=== PATIENT | female | born 1985 | race Caucasian/White ===

== ENCOUNTER 2020-07-03 16:41 | Outpatient (RCR) | payer OTHER, SELFPAY ==
[2016-08-24 07:06] VITALS: BMI 22.2
== END 2020-08-07 23:59 ==
LOC: IMMUN 16:41
PROVIDERS: PCP Family Medicine; Referring Provider Family Medicine; Visit Provider Family Medicine
DX: Z23 Encounter for immunization (principal)
CPT/HCPCS: 0001A; 91300

== ENCOUNTER 2021-01-18 10:31 | Emergency (ER) | payer OTHER, SELFPAY ==
[2021-01-18 10:32] VITALS: BP 132/90; PULSE 97; RESP 16; TEMP 36; O2SAT 100; BMI 18.1
--- NOTE | 2021-01-18 11:00 | RAD_ITS ---
STUDY: X-RAY - LUMBAR SPINE REASON FOR EXAM: Female, 35 years old. back injury TECHNIQUE: 2 view(s) of the lumbar spine were obtained. COMPARISON: None FINDINGS: Normal lumbar lordosis. There is minimal multilevel endplate spondylosis of the lumbar vertebrae. Normal disc space heights. The soft tissue structures are unremarkable. RAD/Lumbar Spine 2 or 3 Views IMPRESSION: No demonstrated fractures Electronically Signed: Can Nguyễn MD at 11:40 EST Tel , Service support ,
--- NOTE | 2021-01-18 11:01 | EDS_ITS ---
HPI History of Present Illness Chief Complaint: Back Detail of Chief Complaint: Back pain that started yesterday Informant: patient Onset/Context/Timing Maximum Severity: Severe Narrative Narrative: Patient presents to the emergency department complaint of back pain that started yesterday. Patient states that she was bowling and felt sudden onset of pain in her low back and had a hard time straightening back out. Patient has not had back issues like this before. She complains of pain that starts in her low back and radiates into both buttocks to about mid thigh. She complains of some numbness to the area. Patient states that sometimes when she tries to walk she has a hard time and feels like her left side wants to give out. She denies loss of bowel or bladder. She denies saddle anesthesia. Prior similar symptoms: No PFSH PFSH Medical History no medical history Home Medications Prenatabs FA 1 tab PO DAILY 02/28/13 [History Last Taken 08/23/16 22:00 1 TAB] Ibuprofen [Motrin] 800 mg PO TID PRN PRN #30 tab 08/25/16 [Rx Last Taken Unknown] diazepam [Valium] 2 mg PO TID PRN #14 tab 01/18/21 [Rx Last Taken Unknown] hydrocodone-acetaminophen 1 tab PO Q4H PRN PRN 3 Days #16 tablet 01/18/21 [Rx Last Taken Unknown] methylprednisolone [Medrol (Guido)] 4 mg PO DAILY #21 tab 01/18/21 [Rx Last Taken Unknown] Allergy/AdvReac Type Severity Reaction Status Date / Time Penicillins AdvReac Unknown Verified 01/18/21 11:10 Surgical History no surgical history Social History Smoking Status: Never smoker [facility] ED Constitutional Constitutional ED: Reports systems reviewed and no addt'l complaints, except as documented; Denies body ache(s), change in weight or chills Eyes Eyes: Denies acute decrease in peripheral vision, change in vision, double vision or loss of vision ENT ENT ED: Reports none; Denies ear pain, lip swelling, loss taste/smell, neck pain, otalgia or sore throat Cardiovascular Cardiovascular: Reports none; Denies abdominal pain, chest pain with activity, leg edema, lightheadedness, palpitations, rapid heart rate or syncope Respiratory/Chest Respiratory/Chest: Reports none; Denies change in mental status, dry cough, dyspnea, hemoptysis, shortness of breath at rest or shortness of breath with exertion Gastrointestinal Gastrointestinal: Reports none; Denies abdominal pain, change in stool character, diarrhea, hematemesis, hematochezia, melena, rectal bleeding or vomiting Genitourinary Genitourinary ED: Reports none; Denies abdominal discomfort, anuria, dysuria, genital pain or polyuria Musculoskeletal Musculoskeletal: Reports none and back pain; Denies arthralgias, difficulty walking, extremity pain, muscle weakness or myalgias Integumentary Reports none; Denies abscess or rash Neurologic Neurologic: Reports none; Denies abnormal gait, confusion, focal weakness, frequent falls, headache(s), loss of vision, numbness, paresthesias, radicular pain, vertigo or weakness Psychiatric Psychiatric: Reports systems reviewed and no addt'l complaints, except as documented and none; Denies behavioral changes, confusion, difficulty concentrating, hallucinations, suicidal ideation, tactile hallucinations or visual hallucinations Endocrine Endocrinology: Denies none, cold intolerance, excessive sweating, fatigue or heat intolerance Hematologic/Lymphatic Hematologic/Lymphatic: Reports none; Denies anemia, easy bleeding or easy bruising Allergic/Immunologic Allergic/Immunologic ED: Denies as per HPI, none, lip swelling, mouth swelling, throat swelling, tongue swelling or hives EXAM Physical Exam Const Vital Signs: 01/18/21 10:32 Temperature 96.8 F L Temperature Source Temporal Pulse Rate 97 Respiratory Rate 16 Blood Pressure 132/90 H Blood Pressure Mean 104 Pulse Ox 100 Oxygen Delivery Method Room Air Positive well nourished and well developed General Appearance ED: well developed and NAD HEENT Reports TM's clear and moist mucous membranes normocephalic and atraumatic; Negative for trauma or tenderness Tympanic Membrane ED: Yes TM's clear Eyes PERRL and EOMs intact bilaterally General Eye ED: Negative for pale conjunctiva or scleral icterus Neck no lymphadenopathy, supple and no JVD General: Negative for tenderness Chest Wall inspection of chest normal and palpation of chest normal Chest: Negative for tenderness Resp normal respiratory effort and clear to auscultation bilaterally Effort and Inspection: Negative for respiratory distress or pain with movement Auscultation: Negative for rhonchi, wheezes or diminished lung sounds Cardio regular rate, regular rhythm, S1 normal heart sound, S2 normal heart sound and no murmurs Peripheral Pulses: pulses 2+ throughout GI normal to inspection, nondistended, normoactive bowel sounds, soft to palpation, non-tender, non-distended and no masses Back/Spine no CVA tenderness Back/Spine Narrative: Patient has tenderness diffusely over lumbar spine and left lumbar paraspinal musculature. Patient has pain with straight leg raising. Deep tendon reflexes are plus 2 out of 4 bilaterally at the patella Achilles. Patient has normal L5 extension bilaterally. Normal sensation to light touch. Patient is painful with rolling in bed. Extremity normal to inspection General Extremety ED: Negative for edema General Extremity: Negative for edema Neuro oriented x3, CN's II-XII intact bilaterally, no sensory deficits noted and gait normal Sensorium / Orientation: awake, alert, oriented to person, oriented to place and oriented to time Motor Exam: strength 5/5 throughout and strength abnormal Psych mental status grossly normal Skin no rashes or lesions noted and no wounds MDM MDM MDM Narrative Medical decision making narrative: Patient was medicated with Dilaudid, Toradol, and Valium. Patient started have good pain relief with that. At this point x- rays were unremarkable of her back. Neurologic exam is unremarkable and no concerning symptoms of cauda equina. She had negative straight leg raises bilaterally on repeat exam. No evidence of weakness on exam. Patient will be referred to her primary care physician for follow-up and if symptoms worsen she is advised to return to the emergency department and was instructed on signs and symptoms of cauda equina. Patient will be given a prescription for Esmond,, Medrol Dosepak, and Valium. Lab Data Attestation: I reviewed the patient's lab results. Radiography Diagnostic Testing: Clinical Impression(s) from Imaging Studies Lumbar Spine X-Ray 01/18/21 11:00 IMPRESSION: No demonstrated fractures Electronically Signed: Can Nguyễn MD at 11:40 EST Tel , Service support , Three-view x-rays of lumbar spine obtained interpreted by myself as no acute fractures or dislocations. Radiology in agreement. Discharge Plan Triage Chief Complaint: Back ED Provider: Antonia Hernandez Dx/Rx/DC Orders Clinical Impression: Back pain, Acute lumbar myofascial strain Instructions: ED Back Sprain/Strain, ED Sciatica Prescriptions: New hydrocodone-acetaminophen [hydrocodone-acetaminophen] 1 TABLET tablet 1 tab PO Q4H PRN PRN (Reason: Pain) 3 Days Qty: 16 RF: 0 diazepam [Valium] 2 mg tablet 2 mg PO TID PRN (Reason: spasms) Qty: 14 RF: 0 methylprednisolone [Medrol (Guido)] 4 mg tablets,dose pack 4 mg PO DAILY Qty: 21 RF: 0 No Action Prenatabs FA 1 TABLET tablet 1 tab PO DAILY RF: 0 Ibuprofen [Motrin] 800 MG tablet 800 mg PO TID PRN PRN (Reason: pain or cramping) Qty: 30 RF: 1 Primary Care Provider: Vj Alvarez Referrals: Vj Alvarez MD [Primary Care Provider] - 3-5 Days Disposition Disposition: Home, Self Care
[2021-01-18] MEDS: diazePAM 2 MG Tablet 4 MG PO (11:13)
[2021-01-18] MEDS: Ketorolac 60 MG/2 ML Vial IM (11:14)
[2021-01-18] MEDS: HYDROmorphone 1 MG/ML Syringe IM (11:14)
[2021-01-18 12:37] VITALS: BP 132/62; PULSE 72; RESP 16; TEMP 36.6; O2SAT 98
== END 2021-01-18 12:42 | disposition home or self-care (01) ==
PROVIDERS: Emergency Provider Emergency Medicine; PCP Family Medicine
DX: S39.012A Strain of muscle, fascia and tendon of lower back, initial encounter (principal); X58.XXXA Exposure to other specified factors, initial encounter; Y93.54 Activity, bowling
CPT/HCPCS: 72100; 96372; 99283

== ENCOUNTER → 2021-06-02 | Outpatient (CLI) | payer OTHER, SELFPAY ==
[2021-06-02 12:51] LABS: Hematocrit 39.6 % (37-47); Hemoglobin 13.6 g/dL (12.0-15.0); Mean Corp Hgb Conc 34.3 g/dL (32-36); Mean Corpuscular Hgb 32.4 pg (27.0-32.0); Mean Corpuscular Volume 94.3 fL (81-99); Platelet Count 245 K/mm3 (150-450); RBC Distribution Width CV 12.1 % (11.6-14.6); RBC Distribution Width SD 41.8 fl (35.1-43.9); White Blood Count 8.1 K/mm3 (4.4-11.0)
[2021-06-02 14:07] LABS: Estradiol 179.3 pg/mL; Follicle Stimulating Hormone 3.8 mIU/mL; Luteinizing Hormone 14.8 mIU/mL; Thyroid Stim Hormone (TSH) 1.06 uIU/mL (0.358-3.74)
[2021-06-05 18:12] LABS: HPV APTIMA, High Risk Negative (Negative)
== END | disposition home or self-care (01) ==
LOC: WOBLAB 10:39
PROVIDERS: PCP Family Medicine; Visit Provider Obstetrics & Gynecology
DX: N93.9 Abnormal uterine and vaginal bleeding, unspecified (principal); Z12.4 Encounter for screening for malignant neoplasm of cervix
CPT/HCPCS: 36415; 82670; 83001; 83002; 84439; 84443; 85027; 87624; 88175; G0145

== ENCOUNTER 2022-01-11 11:51 | Day surgery (SDC) | payer OTHER, SELFPAY ==
[2022-01-11] VITALS (15 sets, daily range): BP systolic 95–118; BP diastolic 63–89; PULSE 60–86; RESP 14–108; TEMP 36.2–36.9; O2SAT 96–100; BMI 19.1
--- NOTE | 2022-01-11 | EMB_PTH ---
PATIENT: MAZIN CARDENAS LOC: [facility] [place] U#:[id number] AGE/SX: 36/F ROOM: RE01/11/[address]: Dr. Cristobal Davey MD : 1985 BED: DIS: 01/11/2022 SPEC #: [id number] RECD: 01/11/22 16:04 STATUS: MALIK ARACELY #: [id number] LUIGI: 01/11/22 00:[address]: Cristobal Davey DEPT: SURGICAL PATHOLOGY RECD BY: Chance Sinha ENTERED: 01/12/22 09:13 SP TYPE: ENDOM BX/C JENNIFER DR: Dr. Vj Alvarez MD Tissues: Endometrium, NOS Procedures: Surgery Specimen Level IV HEADER OPERATION: Hysteroscopy, D & C Scarlett PRE-OP DIAGNOSIS: Abnormal uterine bleeding TISSUE SUBMITTED: Endometrial curettings MICROSCOPIC DIAGNOSIS Endometrium, biopsy: Secretory endometrium with early stromal and glandular breakdown. AM:arianna 01/13/2022 MICROSCOPIC DESCRIPTION Slides are reviewed. GROSS DESCRIPTION Received in fixative is one container labeled with the patient's name and designated endometrial curettings. The specimen consists of multiple fragments of hemorrhagic soft tissue that in aggregate measure 3 x 2.5 x 0.3 cm. The specimen is totally submitted in one cassette. / SJ:rg 01/12/2022 TC:5 CPT: 93688
[2022-01-11 12:32] LABS: Internal QC Validated? YES +Cl - CLEAR BKGD; Pregnancy, Urine Negative Negative
[2022-01-11] MEDS: Lactated Ringers 1,000 ML 15 ML IV (12:34)
--- NOTE | 2022-01-11 13:03 | PCM.HP.BLA ---
History and Physical Date of Admission: 01/11/22 Chief complaint: Abnormal uterine bleeding History of present illness: 36-year-old arrives with abnormal uterine bleeding scheduled for hysteroscopy, dilation curettage, endometrial ablation via Scarlett device. No medical changes since last seen. All questions answered and consent was signed. Obstetric history: G2, P2 history of 2 vaginal deliveries Past medical history: None Medications: None Allergies: Penicillin Surgical history: None Social history: Denies smoking, place, drug use Family history: Denies history of DVT or PE Review of systems: Besides above pertinent positives a full review of systems was performed and found to be negative Physical exam: Vitals: Blood pressure 118/73 pulse 85 respiratory rate 18 temperature 97.2 ?F SPO2 100% on room air General: Normal-appearing no acute distress HEENT: Normocephalic/atraumatic no cervical lymphadenopathy Cardiac/respiratory: No use of accessory muscles, nonlabored breathing Abdomen: Soft, nontender, nondistended Extremities: No peripheral edema normal peripheral pulses Psych: Normal affect normal demeanor nonpressured speech Labs: Urine test negative Assessment plan: 36-year-old arrives with abnormal uterine bleeding for hysteroscopy, dilation and curettage, endometrial ablation via Scarlett. Educated patient on the risk benefits alternatives of the procedure. Patient states understanding and wishes to proceed. All questions were answered and consent was signed
--- NOTE | 2022-01-11 14:46 | DCINST_ITS ---
Discharge Instructions Diet Discharge Diet: No restrictions Activity Discharge Activity: Return to Normal Activity, May Drive and May Shower May resume sexual activity in: 4-6 weeks Weight Bearing Status: Weight bearing as tolerated Dressing / Incision Call your doctor if your incision/area has: Continuous Slow Oozing and Foul Smelling Discharge Call your doctor if you observe: Fever of 101 or Higher, Shortness of breath and Chest pain Follow Up Care Please Follow Up With: Cristobal Davey MD When: 2 weeks postoperatively Test Results: Test results from this visit will be discussed in further detail at your follow- up appointment, if applicable. Discharge Plan Admission Attending Provider: Cristobal Davey Primary Care Provider: Vj Alvarez Discharge Orders/Prescriptions Prescriptions: No Action multivitamin Capsule 1 cap PO DAILY Referrals / Follow Up: Vj Alvarez MD [Primary Care Provider] - Disposition Disposition (needs filled in before D/C Order can be placed): Home, Self Care
--- NOTE | 2022-01-11 14:47 | PCM.OPRPT ---
Report of Operation Date of Procedure: 01/11/22 Pre-Operative Diagnosis: Abnormal uterine bleeding Post-Operative Diagnosis: Abnormal uterine bleeding Surgery/Procedure Performed:: Hysteroscopy, dilation and curettage, endometrial ablation via Scarlett Description of Surgical Findings:: Surgeon: Cristobal Davey MD Anesthesia: MAC EBL: Minimal Urine output: 50 cc none IV fluids: 1000 cc none complications: None Specimen: Endometrial curettings Findings: Preprocedure hysteroscopy revealed no pathology. Endometrial ablation for 120 seconds cavity length 5.5 cm. Post procedure hysteroscopy with status post ablation otherwise no new pathology. Consent: Patient with abnormal uterine bleeding elects for hysteroscopy, dilation curettage, endometrial ablation via Scarlett. Patient understands the risk of the procedure include but are not limited to visceral or vascular injury, prolonged hospitalization, blood loss need for transfusion, reoperation. Patient state understanding and wished to proceed. All questions were answered and consent was signed. Procedure: Patient brought back to the OR where MAC anesthesia was found to be adequate. Patient was prepared and draped in a dorsolithotomy position with yellowfin stirrups. A weighted speculum was placed in the posterior aspect of vagina and cervical dilators were used to dilate the cervix. Hysteroscope was inserted and above findings were noted. Sharp endometrial curettage was performed in all quadrants. Sent to pathology. Scarlett endometrial ablation device was opened, cavity length was found to be 5.5 cm. Endometrial ablation device was inserted under direct visualization. Cavity safety tests were passed. Ablation was performed for 120 seconds. Ablation device removed under direct visualization. Post procedure hysteroscopy was performed and above findings were noted. Good hemostasis was noted. All counts were correct x2. Patient tolerated procedure well and was brought to recovery in stable condition.
[2022-01-11] MEDS: Ketorolac 30 MG/ML Syringe IV (15:01)
[2022-01-11] MEDS: Acetaminophen 500 MG Tablet 1000 MG PO (17:02)
[2022-01-11] MEDS: oxyCODONE 5 MG Tablet PO (17:11)
== END 2022-01-11 19:00 | disposition home or self-care (01) ==
LOC: SDC 11:53 → AC 12:19
PROVIDERS: Anesthesiology; PCP Family Medicine; Referring Provider Obstetrics & Gynecology; Visit Provider Obstetrics & Gynecology
PROC: 0U5B8ZZ Destruction of Endometrium, Via Natural or Artificial Opening Endoscopic (ICD-10-PCS; CPT 58558; principal; 2022-01-11 13:15)
DX: N93.9 Abnormal uterine and vaginal bleeding, unspecified (principal)
CPT/HCPCS: 58563; 00952; 81025; 88305; J7120; J2405

== ENCOUNTER 2024-12-05 06:33 | Day surgery (SDC) | payer BC, SELFPAY ==
[2024-12-05] VITALS (8 sets, daily range): BP systolic 90–103; BP diastolic 60–81; PULSE 73–93; RESP 16; TEMP 36.3–36.8; O2SAT 100; BMI 18.3
--- OUTSIDE RECORDS SUMMARY | 2024-12-05 06:36 | XMS RPT_ITS | CCD ---
Author Organization [facility] Care Team Providers Care Director Corporate Security Name Role Phone Nisha Alvarez MD Primary Care Provider [phone] NISHA ALVAREZ Primary Care Unavailable TALKARANGLE Attending Unavailable Antonio JASSO, Dr. Zabala Primary Care Physician Dr. Nisha Alvarez MD Referring Provider Mica Theodore Attending Physician [phone] Care Physician, No Primary Primary Care Unava ilable Care Physician, No Primary Referring Unava ilable Friend, Rodney Attending Unavailable Mica Daly Attending Unavailable Nisha Alvarez Primary Care Unavailable Nisha Alvarez Referring Unavailable Nisha Alvarez Primary Care Unavailable Nisha Alvarez Referring Unavailable Franco Muniz Attending Unavailable Allergies Allergy Classification Reported Allergen(s) Allergy Type Date of Onset Reaction(s) Facility (2 sources) Penicillins Propensity to adverse reactions 2 Unknown [facility] (1 source) Penicillins Drug allergy (disorder) 5 [facility] Repository Medications Current Medications Medication Drug Class(es) Dates Sig (Normalized) Sig (Original) acetaminophen 325 mg / HYDROcodone bitartrate 5 mg oral tablet (1 source) Opioid Agonist Start: 1 take 1 tablet by mouth every four hours as needed Hydrocodone-Acetamino phen Active 1 TABLET PO EVERY 4 HOURS NEEDED 16 3 January 18, 2021 1:03pm cefdinir 300 mg oral capsule (1 source) Cephalosporin Antibacterial Start: 5 End: 5 take 1 capsule by mouth twice daily cefdinir (OMNICEF) 300 mg capsule Indications: URI, acute , Acute otitis media, left Take 1 capsule by mouth two times a day for 10 days. 20 capsule 09/09/2024 09/19/2024 Active diazePAM 2 mg oral tablet (1 source) Benzodiazepine Start: 1 take 1 tablet by mouth three times daily Diazepam (Valium) 2 mg tablet Active 2 MG PO THREE TIMES A DAY January 18, 2021 1:04pm ibuprofen 800 mg oral tablet (1 source) Nonsteroidal Anti-inflammatory Drug Start: 7 take 1 tablet by mouth three times daily as needed Ibuprofen (Motrin) 800 MG tablet Active 800 MG PO 3 TIMES DAILY NEEDED August 25, 2016 7:28am methylPREDNISolone (2 sources) Corticosteroid Start: 5 End: 5 methylPREDNISolone (MEDROL, KWADWO,) 4 mg Dose-Pack Indications: URI, acute , Acute otitis media, left Take as instructed per package. 21 tablet 09/09/2024 09/15/2024 Active Start: 01-18-2021 take 1 tablet by cristiano once daily Methylprednisolone (Medrol (Kwadwo)) 4 mg tablets,dose pack Active 4 MG PO DAILY January 18, 2021 1:04pm Multivitamin Capsule (1 source) Start: 01-06-2022 Multivitamin Capsule Active 1 NMA PO DAILY January 06, 2022 1:00am Complies with drug therapy Multivitamin preparation (1 source) Start: 01-06-2022 take 1 capsule by mouth once daily Multivitamin Active 1 CAP PO DAILY January 06, 2022 12:00am predniSONE 20 mg oral tablet (1 source) Start: 12-02-2021 End: 12-07-2021 take 2 tablets by mouth once daily predniSONE (DELTASONE) 20 mg tablet Take 2 tablets by mouth once daily for 5 days. 10 tablet 0 12/02/2021 12/07/2021 Active Comment on above: Take 2 tablets by mo [facility] once daily for 5 days. Vit,[id number] c (Prenatabs Fa) 1 TABLET tablet (1 source) Start: 02-28-2013 take 1 tablet by mouth once daily Vit,[id number] ic (Prenatabs Fa) 1 TABLET tablet Active 1 TABLET PO DAILY February 28, 2013 9:14pm smooth move tea (1 source) Start: 11-15-2024 Sod Sulf-Pot Chloride-Mag Sulf (1 source) Start: 11-15-2024 take 1.479 tablets by mouth once Sod Sulf-Pot Chloride-Mag Sulf (Sutab) 1.479-0.188- 0.225 gram tablet Active 0 PO per package directions 24 November 15, 2024 12:00am PO PER PKG DIR Complies with drug therapy Problems Active Problems Problem Classification Problem Date Documented Da te Episodic/Chronic Gastrointestinal hemorrhage (3 sources) Hematochezia; Translations: [Melena] Onset: 11-15-2024 11-15-2024 Episodic Other gastrointestinal disorders (2 sources) Constipation; Translations: [Constipation, unspecified] 11-15-2024 Episodic Other gastrointestinal disorders (1 source) Constipation, unspecified; Translations: [Constipation, unspecified] Onset: 11-15-2024 Episodic Otitis media and related conditions (2 sources) Acute left otitis media; Translations: [Otitis media, unspecified, left ear] Onset: 09-09-2024 09-09-2024 Episodic Spondylosis; intervertebral disc disorders; other back problems (3 sources) Backache; Translations: [Dorsalgia, unspecified] 01-26-2021 Episodic Sprains and strains (3 sources) Lower back injury; Translations: [Strain of muscle, fascia and tendon of lower back, initial encounter] 01-26-2021 Episodic Past or Other Problems Problem Classification Problem Date Documented Da te Episodic/Chronic Other upper respiratory infections (5 sources) Sore throat symptom; Translations: [Acute pharyngitis, unspecified] Onset: 04-05-2024 Episodic Results Test Name Value Interpretation Reference Range Facility Gastroenterology Visit Repor ton 11-15-2024 Gastroenterology Visit Report [facility] [address] [place] [address] OFFICE VISIT Date of Service: 11/15/24 MR#: [id number] Acct: [id number] Name: FAIZA CARDENAS Rep #: [id number] : 1985 Provider: CADY Chavez Age/Sex: 39/F [place] [facility] [place] Status: Signed Intake Vital Signs 04/05/24 10:36 Height 5 ft 3 in Weight: 105 lb 4 oz BMI 18.6 BP 102/68 Position Sitting Pulse 90 Temp 98.3 F Temp Source Oral Pulse Oximetry (%) 98 Oxygen Delivery Method room air Intake Visit Reasons: Digestion Concerns Chief Complaint: Consitpation Allergies Penicillins Adverse Reaction (Verified 04/05/24 10:37) Unknown Medications ???Medication ???Instructions ???Recorded ???Confirmed ???Type multivitamin 1 cap PO DAILY 01/06/22 11/15/24 H istory smooth move tea PO 11/15/24 History sodium sul 1.479 gram-potas ch See Rx Instructions PO PER PKG DIR 11/15/24 11/15/24 Rx 0.188 gram-magnes sul 0.225 gram #24 tabs tablet (Sutab) PFSH Medical History UTI (urinary tract infection) Back problem Blood infection Alcohol use Anemia Non-smoker Surgical History H/O uterine ablation History of placement of ear tubes Hx of myringotomy Hx of tonsillectomy Family History Father Alcoholism Hypertension Grandmother Anesthesia complication Breast cancer CVA (cerebral vascular accident) Grandfather Myocardial infarction Heart disease Hypertension Melanoma Social History Smoking Status: Never smoker alcohol intake: current substance use type: does not use what type of physical activity do you participate in: walking and yoga frequency: 3-4 times per week HPI HPI Chief Complaint: Consitpation Details: FAIZA CARDENAS, is a 39 F who presents to the office today for establishment. Pt having constipation x1 year. She started drinking smooth moves tea which has contains senna two times per week. She is able to have a bowel movement two times per week. SHe has tried miralax in the past without relief. She notices dark red blood and mucous in her stool. She has associated bloating and abd pain. When she does have a bowel movement it is typically soft or loose. She denies formed bowel movements. SHe has always had a degree of constipation since having children. ROS Const Constitutional: Positive for fatigue; No fever(s) or weight change ENT ENT: No difficulty swallowing Gastro GI: Positive for abdominal pain, bloating, change in bowel habits, constipation, diarrhea, heartburn and Blood in stool; No belching, change in stool character, coffee ground emesis, cramping, difficulty swallowing, feeling full early, excessive flatus, incontinent of stools, Vomiting blood/hematemesis, loose stools, Black,tarry stools, nausea/dyspepsia, pain with swallowing or other Musc Musculoskeletal: Positive for back pain; No joint pain Skin Skin: No yellowing of the eye or itchy eyes Psych Psychiatric: No anxiety, No depression and Positive for inattentiveness Endo Endocrine: Positive for fatigue; No weight change Aller/Imm Allergy/Immunologic: No itchy eyes Héctor/Lymp Hematologic/Lymphatic: Positive for easy bruising; No easy bleeding Exam Const General: cooperative and comfortable Nutritional Appearance: thin Orientation: alert HENMT Head: normal to inspection Ears: hearing grossly normal bilaterally Eyes General: appearance normal, both eyes and all related structures Neck Neck: normal visual inspection Chest Chest palpation inspection: normal inspection of the chest Resp Effort Inspection: normal respiratory effort Cardio Rate: regular rate Rhythm: regular rhythm GI Inspection: normal to inspection Auscultation: normal bowel sounds Palpation: not soft, firm, no guarding and nontender Assessment and Plan Assessment and Plan (1) Constipation: Status: Acute Plan: This is a 39-year-old female patient here today for evaluation for constipation and blood in her stool. Patient first noticed constipation after having her 2 children but it progressively worsened over the past year. She is currently taking a senna tea 2 times per week which allows her to have 2 bowel movements per week. She is also seeing maroon-colored blood and mucus in her stools. Recommended trialing Linzess 145 mcg daily and if she finds this helpful we will send in prescription. She was advised that she may experience diarrhea within the first 2 weeks of taking it but should normalize. Patient was also scheduled for colonoscopy for evaluation of her lower GI tract to rule out underlying etiology. Patient was agreeable to procee (more content not included)... Normal [facility] CNOVon 09-09-2024 CNOV Office Visit (WOUCA) FAIZA CARDENAS ([id number]) 1985 F CHT Date Time Provider Department 09/09/24 9:45 AM ANGLE CLEMENS During your visit today, we recorded the following information about you: Temperature Pulse Respiration Blood pressure 99.3 degrees 100/minute 16/minute 102/64 Weight 48.3 kg Angle Clemens MD 09/09/2024 9:53 AM Signed Otitis Media You have been diagnosed with otitis media. This is a middle ear infection. Otitis media is inflammation of the middle ear. It is most common in children 6 months to 3 years old. However, it can happen at any age. It is caused by either a bacteria or a virus and often follows a viral upper respiratory (lung) infection. Some otitis media symptoms are: Fever (temperature higher than 100.4?F / 38?C) and ear pain. There may also be a feeling of fullness in the ear or decreased hearing. If the eardrum ruptures (splits), there may also be drainage from the ear. In the [facility], otitis media is often treated with antibiotics. It is also often treated with pain medicines like acetaminophen (Tylenol?) or ibuprofen (Advil? or Motrin?) and sometimes with pain-relieving eardrops. In many other countries, otitis media is not treated with antibiotics. However, the outcome seems to be the same: The ear clears up on its own! Most cases of otitis media get better over 2-3 days with treatment. Take the antibiotic as directed and finish the whole prescription. Follow up with your doctor in 4-6 weeks. This will be to make sure the fluid in the middle ear has cleared. YOU SHOULD SEEK MEDICAL ATTENTION IMMEDIATELY, EITHER HERE OR AT THE NEAREST EMERGENCY DEPARTMENT, IF ANY OF THE FOLLOWING OCCURS: You do not get better, despite treatment. Symptoms become worse. A severe headache, stiff neck, lethargy (excessive fatigue and sleepiness) or confusion develops. Angle Clemens MD 09/09/2024 9:58 AM Signed [facility] Brenda Dozierharsha Cardenas is a 39 year old female. Patient presents with: Earache: Entered by patient Ear Pain: left ear pain, blood and can not hear x 2 days Pt here with 1 week hx of uri sx now left ear pain and clear discharge then some blood muffled hearing also mild fever also a cough with mucus no rashes no sT + post nasal drip Ear Pain Associated symptoms include chills, congestion, coughing and a fever. Review of Systems Constitutional: Positive for chills and fever. HENT: Positive for congestion, ear discharge, ear pain, hearing loss, postnasal drip, sinus pressure and sinus pain. Respiratory: Positive for cough. Negative for shortness of breath, wheezing and stridor. Objective BP 102/64 Pulse 100 Temp 37.4 ?C (99.3 ?F) Resp 16 Wt 48.3 kg (106 lb 7.7 oz) LMP 09/26/2009 SpO2 96% Physical Exam Vitals and nursing note reviewed. Constitutional: Appearance: Normal appearance. She is not ill-appearing. HENT: Right Ear: Tympanic membrane and ear canal normal. Ears: Comments: Left tm red canal ok no blood no discharge at this time Nose: Congestion and rhinorrhea present. Mouth/Throat: Mouth: Mucous membranes are moist. Pharynx: Oropharynx is clear. Cardiovascular: Rate and Rhythm: Normal rate and regular rhythm. Heart sounds: Normal heart sounds. Pulmonary: Effort: Pulmonary effort is normal. Breath sounds: Normal breath sounds. No wheezing, rhonchi or rales. Chest: Chest wall: No tenderness. Neurological: Mental Status: She is alert and oriented to person, place, and time. Psychiatric: Mood and Affect: Mood normal. Behavior: Behavior normal. {ASSESSMENT/PLAN: 1. URI, acute - ICD9: 465.9, ICD10: J06.9 (primary diagnosis) - CEFDINIR 300 MG CAPSULE - METHYLPREDNISOLONE 4 MG TABLETS IN A DOSE PACK 2. Acute otitis media, left - ICD9: 382.9, ICD10: H66.92 Return here as needed - CEFDINIR 300 MG CAPSULE - METHYLPREDNISOLONE 4 MG TABLETS IN A DOSE PACK Angle Clemens MD History and Record Review Clinical information obtained from an independent historian. History obtained from or confirmed by: spouse. Systemic symptoms present included: fever Differential Diagnoses - otitis media is more likely for the following reason(s): suggested by HANDP - pneumonia is less likely for the following reason(s): normal exam o2 sat normal, HANDP not suggestive Disposition The patient was discharged. Procedures Allergies As of Date: 09/09/2024 (No Known Allergies) Date Reviewed: 09/09/2024 Reviewed by: Adrianna Anna MA - Fully Assessed Reason for Visit: Earache [243] Cmt: Entered by patient Ear Pain [817] Cmt: left ear pain, blood and can not hear x 2 days Primary Visit Diagnosis:URI, acute [J06.9] Other Visit Diagnosis:Acute otitis media, left [H66.92] Order(s):cefdinir (OMNICEF) 300 mg capsuleTake 1 capsule by mouth two times a day for 10 days.Disp: 20 capsu (more content not included)... Normal [facility] Visit Reporton 0 04-05-2024 Urgent Care Visit Report [facility] [address], [address] [place] [address] OFFICE VISIT Date of Service: 04/05/24 MR#: [id number] Acct: [id number] Name: FAIZA CARDENAS Rep #: [id number] : 1985 Provider: CADY Oglesby Age/Sex: 38/F [place] [facility] [place] Status: Signed Intake Vital Signs 01/11/22 12:35 04/05/24 10:36 Height 5 ft 3 in 5 ft 3 in Weight: 105 lb 4 oz BMI 18.6 BP 102/68 Position Sitting Pulse 90 Temp 98.3 F Temp Source Oral Pulse Oximetry (%) 98 Oxygen Delivery Method room air Intake Visit Reasons: sore throat Accompanied by: Self Allergies Penicillins Adverse Reaction (Verified 04/05/24 10:37) Unknown Medications ???Medication ???Instructions ???Recorded ???Confirmed ???Type multivitamin 1 cap PO DAILY 01/06/22 04/05/24 H istory Nurse's Note: Patient has a ST, that started yesterday. Patient states her throat feels like its on fire. Patient states it hard to swallow. Patient lymph nodes are swollen she states and her daughter tested positive on Tuesday for strep. PFSH Medical History Alcohol use Anemia Non-smoker Surgical History (Updated 01/06/22 @ 12:27 by [place] Ramesh) Hx of myringotomy Hx of tonsillectomy Social History Smoking Status: Never smoker HPI HPI Details: FAIZA CARDENAS, is a 38 F who presents to the office today for complaint sore throat that started yesterday. Patient states it feels like her throat is on fire. She denies fever, chills, sweats. No hemoptysis, shortness of breath or difficulty breathing. No loss of taste or smell. No other associated symptoms or alleviating/aggravating factors. ROS Const Constitutional: No other (6 system ROS completed with pertinent findings in the HPI otherwise normal.) Exam Const General: cooperative and well developed HENMT Head: normal to inspection and atraumatic Ears: hearing grossly normal bilaterally Nose: nasal discharge clear Face and sinus: normal facial exam Mouth: oral mucosae normal Throat: abnormal tonsil bilaterally hypertrophy 1+ Resp Effort Inspection: normal respiratory effort and no audible wheezes Auscultation: Bilateral: Clear to Auscultation Cardio Palpation: normal PMI Rate: regular rate Rhythm: regular rhythm Neuro General: patient alert and CN's II-XI intact bilaterally Psych Appearance: grossly normal Mental Status: mental status grossly normal Results POC Aundrea Rapid Strep POC Aundrea Rapid Strep Negative Last Edit by Theresa Deluna MA on 04/05/24 10:51 Coding Level of Care Code Off vis,new,level 3 Diagnoses Acute pharyngitis J02.9 Assessment and Plan Assessment and Plan (1) Acute pharyngitis: Status: Acute Plan: Patient tested negative for strep in the office today. Encouraged to get plenty of rest, drink lots of clear liquids, and use Tylenol or Ibuprofen (unless contraindicated) for fever and comfort. Patient also educated on other symptomatic management techniques. To be seen in 7-10 days if no improvement; sooner if worsening of symptoms. Patient advised of potential red flags and when appropriate to report to the ED. Patient verbalized understanding and agreement with all the above. Orders: Orders POC Aunrdea Rapid Strep A 04/05/24 J02.9 - Acute pharyngitis, unspecified 04/06/24 0647 Date Franco Paz Signature: Date (if applicable) CC: Normal [facility] Laboratory - Chemistry and C hemistry - challengeon 01-11-2022 HCG ( test) Ql (U) Negative [facility] Work Phone: Comment on above: Very dilute urine sp ecimens, as indicated by a low specificgravity, may not contain technical support representative levels of hCG. If is still suspected, a first morning urinespecimen should be collected 48 hours later and tested. STREP A MOLECULAR (POC)on Procedural Control Valid [facility] Strep A (POCT) Negative Negative [facility] Basophil percentageon 2021 WBC (Bld) [#/Vol] 8.1 10*3/uL 4.4-11.0 [facility] Work Phone: Blood erythrocytes count (nu mber/volume)on 06-02-2021 RBC (Bld) [#/Vol] 4.20 10*6/uL 4.2-5.4 [facility] Work Phone: Blood hemoglobin measurement (mass/volume)on 06-02-2021 Hemoglobin (Bld) [Mass/Vol] 13.6 g/dL 12.0-15.0 [facility] Work Phone: Blood platelet mean volumeon 06-02-2021 Platelet mean volume (Bld) [Entitic vol] 11.0 fL 6.2-12.0 [facility] Work Phone: Cervical or vagninal specime n microscopic examination by cytology stain (reported ason 06-02-2021 Cytology report Cyto stain Doc (Cvx/Vag) Comment [facility] Work Phone: Comment on above: The Pap smear is a s creening test designed to aid in thedetection of premalignant and malignant conditions of theuterine cervix. It is not a diagnostic procedure andshould not be used as the sole means of detecting cervicalcancer. Both false-positive and false-negative reports dooccur. Detection in cervical specim en of any of human papilloma virus (HPV) 16, 18, 31, 33,on 06-02-2021 HPV 16+18+31+33+35+39+45+ 51+52+56+58+59+66+68 DNA Probe+sig amp Ql (Cvx) Negative Negative [facility] Work Phone: Comment on above: This nucleic acid am plification test detects fourteen high- risk HPV types (16,18,31,33,35,39,45,51,52,56,58,59,66,68)without differentiation.Performed at: - [facility] [id number] Director: Elsie Tobin MD, Phone: [phone] at: = - [facility] [id number] Director: Elsie Tobin MD, Phone: [phone] Determination of erythrocyte mean corpuscular volume (MCV)on 06-02-2021 MCV (RBC) [Entitic vol] 94.3 fL 81-99 [facility] Work Phone: Hematocrit Auto (Bld) [Volum e fraction]on 06-02-2021 Hematocrit (Bld) [Volume fraction] 39.6 % 37-47 [facility] Work Phone: Laboratory - Chemistry and C hemistry - challengeon 06-02-2021 Free T4 [Mass/Vol] 1.00 ng/dL 0.76-1.46 [facility] Work Phone: Laboratory - Cytologyon 05-09 Electronics Recycler Cyto stain Nom (Cvx/Vag) [ID] Comment [facility] Work Phone: Comment on above: Becky Guzman, Cyto technologist (ASCP) Laboratory - Hematology and Cell countson 06-02-2021 Erythrocyte distribution width (RBC) [Entitic vol] 41.8 fL 35.1-43.9 [facility] Work Phone: Erythrocyte distribution width (RBC) [Ratio] 12.1 % 11.6-14.6 [facility] Work Phone: MCH (RBC) [Entitic mass] 32.4 pg 27.0-32.0 [facility] Work Phone: Laboratory - Miscellaneous t estson 06-02-2021 Service comment (Unsp spec) [Interp] Comment [facility] Work Phone: Comment on above: This liquid based Th inPrep(R) pap test was screened withthe use of an image guided system. Service comment (Unsp spec) [Interp] . [facility] Work Phone: MCHC Auto (RBC) [Mass/Vol]on 06-02-2021 MCHC (RBC) [Mass/Vol] 34.3 g/dL 32-36 [facility] Work Phone: No Panel Informationon 06-02 Follicle Stimulating Hormone 3.8 mIU/mL [facility] Work Phone: Comment on above: NORMAL REFERENCE RAN GES FEMALE FOLLICULAR 2.3 - 12.6 mIU/mL MID-CYCLE PEAK 5.2 - 17.5 mIU/mL LUTEAL 1.7 - 12.9 mIU/mL POST-MENOPAUSAL ON MHT 5.9 - 72.8 mIU/mL NOT ON MHT 12.7 - 132.2 mlU/mL MALE 0.7 - 10.8 mIU/mL Luteinizing Hormone 14.8 mIU/mL [facility] Work Phone: Comment on above: NORMAL REFERENCE RAN GES FEMALE FOLLICULAR 1.9 - 26.2 mIU/mL MID-CYCLE PEAK 22.8 - 76.1 mIU/mL LUTEAL 0.6 - 16.6 mIU/mL POST-MENOPAUSAL ON MHT 1.1 - 52.4 mIU/mL NOT ON MHT 8.6 - 61.8 mIU/mL MALE 1.2 - 10.6 mIU/mL Thyroid Stimulating Hormone (TSH) 1.06 uIU/mL 0.358-3.74 [facility] Work Phone: Pathology report final diagnosis Narrative Comment [facility] Work Phone: Comment on above: NEGATIVE FOR INTRAEP ITHELIAL LESION OR MALIGNANCY. Platelets bldon 06-02-2021 Platelets (Bld) [#/Vol] 245 10*3/uL 150-450 [facility] Work Phone: Serum or plasma estradiol (E 2) measurement (mass/volume)on 06-02-2021 E2 [Mass/Vol] 179.3 pg/mL [facility] Work Phone: Comment on above: NORMAL REFERENCE RAN GES FEMALE FOLLICULAR 21.4 - 164.8 pg/mL MID-CYCLE PEAK 49.9 - 367.2 pg/mL LUTEAL 40.2 - 259.0 pg/mL POST-MENOPAUSAL ON MHT <11.0 - 462.1 pg/mL NOT ON MHT <11.0 - 58.3 pg/mL MALE <11.0 - 52.5 pg/mL NOTE:[facility] HAS CONFIRMED THE DRUG FULVETRANT (FASLODEX) MAY CAUSE FALSELY ELEVATED ESTRADIOL RESULTS WHEN USING THIS TEST METHOD. IF PATIENT IS TAKING FULVESTRANT AN ALTERNATIVE METHOD SHOULD BE USED TO DETERMINE ESTRADIOL CONCENTRATION. Vital Signs Date Time Vital Sign Value Performing Clinician Facility 09-09-2024 09:44-0400 Body temperature 99.3 [degF] Angle Clemens MD Work Phone: [facility] 09-09-2024 09:44-0400 Body weight 48.3 kg Angle Clemens MD Work Phone: [facility] 09-09-2024 09:44-0400 Diastolic blood pressure 64 mm[Hg] Angle Clemens MD Work Phone: [facility] 09-09-2024 09:44-0400 Heart rate 100 /min Angle Clemens MD Work Phone: [facility] 09-09-2024 09:44-0400 Respiratory rate 16 /min Angle Clemens MD Work Phone: [facility] 09-09-2024 09:44-0400 SaO2% (BldA) [Mass fraction] 96 % Angle Clemens MD Work Phone: [facility] 09-09-2024 09:44-0400 Systolic blood pressure 102 mm[Hg] Angle Clemens MD Work Phone: [facility] 01-11-2022 18:45-0500 Body temperature 98.3 [degF] [facility] Work Phone: 01-11-2022 18:45-0500 Diastolic blood pressure 75 mm[Hg] [facility] [place] Work Phone: 01-11-2022 18:45-0500 Heart rate 68 /min [facility] Work Phone: 01-11-2022 18:45-0500 Respiratory rate 16 /min [facility] Work Phone: 01-11-2022 18:45-0500 SaO2% (BldA) [Mass fraction] 99 % [facility] Work Phone: 01-11-2022 18:45-0500 Systolic blood pressure 102 mm[Hg] [facility] Work Phone: 01-11-2022 12:35-0500 Body height 160.02 cm [facility] Work Phone: 01-11-2022 12:35-0500 Body mass index (BMI) [Ratio] 19.1 kg/m2 [facility] Work Phone: 01-11-2022 12:35-0500 Body weight 48.98 kg [facility] Work Phone: 12-02-2021 08:47-0400 Body temperature 99.39 [degF] Wandy Jain APRN.[employer] Work Phone: [facility] 12-02-2021 08:47-0400 Body weight 48.08 kg Wandy Jain APRN.[employer] Work Phone: [facility] 12-02-2021 08:47-0400 Diastolic blood pressure 70 mm[Hg] Wandy Jain APRN.[employer] Work Phone: [facility] 12-02-2021 08:47-0400 Heart rate 116 /min Wandy Jain APRN.[employer] Work Phone: [facility] 12-02-2021 08:47-0400 Respiratory rate 20 /min Wandy Jain APRN.[employer] Work Phone: [facility] 12-02-2021 08:47-0400 SaO2% (BldA) [Mass fraction] 98 % Wandy Jain APRN.[employer] Work Phone: [facility] 12-02-2021 08:47-0400 Systolic blood pressure 118 mm[Hg] Wandy Jain APRN.[employer] Work Phone: [facility] Encounters Encounter Date Encounter Type Care Provider Facility Start: 12-05-2024 ambulatory No Primary Car e Physician Facility:[facility] Start: 11-15-2024 End: 11-15-2024 Patient encounter procedure Mica LAZAR -[facility] Work Phone: Start: 11-15-2024 End: 11-15-[address] Nisha Alvarez MD Work Phone: -[facility] Start: 09-09-2024 End: 09-09-2024 Office outpatient visit 25 minutes Angle Clemens MD Work Phone: [facility] [place] Comment on above: URI, acute (Primary Dx); Acute otitis media, left Start: 09-09-2024 End: 09-09-2024 ambulatory NISHA ALVAREZ Facility:[facility] Start: 04-05-2024 End: 04-05-2024 dawson Alvarez Facility:[facility] Start: 01-11-2022 End: 01-11-2022 Admission to same day surgery center [facility] Start: 01-11-2022 End: 01-11-2022 ambulatory [facility] Work Phone: Start: 12-02-2021 End: 12-02-2021 Patient encounter procedure Wandy Jain APRN.[employer] Work Phone: [facility] Comment on above: Sore throat (Primary Dx) Start: 06-02-2021 End: 06-02-2021 Patient encounter procedure [facility] [place] lens block gauger Off Procedures Date Procedure Procedure Detail Performing Clinician Start: 01-11-2022 Hysteroscopy with endometrial ablation Start: 12-02-2021 STREP A MOLECULAR (POC) Wandy Jain APRN.[facility] Work Phone: Plan of Treatment Date Care Activity Detail Author Start: 10-08-2024 Influenza vaccination Influenz a Vaccine (#1) [facility] Start: 01-11-2022 Patient discharge [facility] Work Phone: Start: 01-11-2022 Ambulation therapy management [facility] Work Phone: Start: 01-11-2022 Continuous pulse oximetry [facility] Work Phone: Start: 01-11-2022 Elevation of head of bed [facility] Work Phone: Start: 01-11-2022 Incentive spirometry [facility] Work Phone: Start: 01-11-2022 Introduction of urin chanel catheter [facility] Work Phone: Start: 01-11-2022 Measuring intake and output [facility] Work Phone: Start: 01-11-2022 Notification of physician [facility] Work Phone: Start: 01-11-2022 Oxygen therapy [facility] Work Phone: Start: 01-11-2022 Patient education [facility] Work Phone: Start: 01-11-2022 Taking patient vital signs [facility] Work Phone: Start: 01-11-2022 Wound care [facility] Work Phone: Start: 01-11-2022 [facility] Work Phone: Start: 12-03-2021 End: 02-02-2022 Heterophile Ab [Presence] in Serum by Latex agglutination MONOTEST, INFECTIOUS MONO Lab Routine Sore throat Expected: 12/03/2021, Expires: 02/02/2022 [facility] Work Phone: Comment on above: Expected: 12/03/2021 , Expires: 02/02/2022 Start: 10-08-2021 Influenza vaccination INFLUENZA (#1) [facility] Start: 02-07-2021 DEPRESSION ASSESSMENT DEPRESSION ASS ESSMENT [facility] Start: 09-19-2020 COVID-19 VACCINE (3 - Booster for Pfizer series) COVID-19 VACCINE (3 - Booster for Pfizer series) [facility] Start: 05-29-2017 HPV TESTING HPV TESTING [facility] Start: 09-09-2015 Urine microalbumin profile DTaP,Tdap,Td Vaccine (2 - Td or Tdap) [facility] Start: 05-29-2008 PAP TESTING PAP TESTING [facility] Start: 05-29-2008 Screening for malign ant neoplasm of cervix Cervical Cancer Screening [facility] Start: 05-29-2006 Urine microalbumin profile DTAP,TDAP,TD (1 - Tdap) [facility] Start: 05-29-2005 Anxiety Screening Anxiety Screening [facility] Start: 05-29-2005 Depression Screening Depression Scre ening [facility] Start: 05-29-2005 HEPATITIS C SCREENING HEPATITIS C [facility] Start: 05-29-2005 Hepatitis C screening Hepatitis C [facility] Start: 05-29-2005 HIV SCREENING HIV SCREENING [facility] Start: 05-29-2005 HIV screening HIV Screening [facility] Start: 03-07-2003 Hepatitis B Vaccine (2 of 3 - 3-dose series) Hepatitis B Vaccine (2 of 3 - 3-dose series) [facility] Start: 1985 HEPATITIS B (1 of 3 - 3-dose series) HEPATITIS B (1 of 3 - 3-dose series) [facility] Patient referral [facility] Work Phone: Immunizations Immunization Date Immunization Notes Care Provider Mark rodriguez 03-03-2013 Influenza virus vaccine [facility] Payers Date Payer Category Payer [facility] [id number] 2024 Self-pay [id number] 2024 Unknown [id number] 2021 Unknown MMO MMO [employer] [id number] 2021-Present [phone] [address] [place] [address] PPO [id number] 2014 Unknown [id number] Private Health Insurance [id number] Unknown [id number] Unknown [id number] Social History Date Type Detail Facility Start: 01-18-2021 End: 01-06-2022 Tobacco smoking status NHIS Unknown if ever smoked [facility] Work Phone: Start: 07-08-2020 Occasional [facility] Start: 07-08-2020 None [facility] Start: 07-08-2020 Homeless [facility] Start: 07-08-2020 Non-smoker [facility] Start: 1985 Sex Assigned At Female W [facility] Start: 12-02-2021 End: 11-15-2024 Tobacco smoking status NHIS Never smoked tobacco [facility] Work Phone: Start: 12-02-2021 Tobacco use and exposure Smokeless tobacco non-user [facility] Work Phone: Start: 12-02-2021 Alcohol intake Current non-dr supervisor [employer] of alcohol (finding) [facility] Start: 1985 Sex Assigned At Not on file [facility] Start: 11-22-2021 End: 12-02-2021 Exposure to SARS-CoV-2 (event) Not sure [facility] Start: 01-15-2020 End: 12-02-2021 History of Social function [facility] Start: 01-15-2020 End: 12-02-2021 Tobacco use panel [facility] National Score (1-100), lower number is lower risk Not on file [facility] Goals Date Patient Goal Desired Activity /State Mental Status Date Assessment Result Facility 01-11-2022 Cognitive function Voice/Name [facility] Work Phone: Clinical Notes 06-02-2021 to 11-15-2024 Angle Clemens MD - 09/09/2024 9:53 AM EDTPatient Kosta Jain APRN.CNP - 12/02/2021 8:55 AM EDT Note Date & Type Note Facility 11-15-2024 Progress note [facility] 09-09-2024 Note HNO ID: [id number] Author: ANGLE CLEMENS MD Service: ? Author Type: Physician Type: Progress Notes Filed: 09/09/2024 09:58 Note Text: [facility] Cardenas is a 39 year old female. Patient presents with: Earache: Entered by patient Ear Pain: left ear pain, blood and can not hear x 2 days Pt here with 1 week hx of uri sx now left ear pain and clear discharge then some blood muffled hearing also mild fever also a cough with mucus no rashes no sT + post nasal drip Ear Pain Associated symptoms include chills, congestion, coughing and a fever. Review of Systems Constitutional: Positive for chills and fever. HENT: Positive for congestion, ear discharge, ear pain, hearing loss, postnasal drip, sinus pressure and sinus pain. Respiratory: Positive for cough. Negative for shortness of breath, wheezing and stridor. Objective BP 102/64 Pulse 100 Temp 37.4 ?C (99.3 ?F) Resp 16 Wt 48.3 kg (106 lb 7.7 oz) LMP 09/26/2009 SpO2 96% Physical Exam Vitals and nursing note reviewed. Constitutional: Appearance: Normal appearance. She is not ill-appearing. HENT: Right Ear: Tympanic membrane and ear canal normal. Ears: Comments: Left tm red canal ok no blood no discharge at this time Nose: Congestion and rhinorrhea present. Mouth/Throat: Mouth: Mucous membranes are moist. Pharynx: Oropharynx is clear. Cardiovascular: Rate and Rhythm: Normal rate and regular rhythm. Heart sounds: Normal heart sounds. Pulmonary: Effort: Pulmonary effort is normal. Breath sounds: Normal breath sounds. No wheezing, rhonchi or rales. Chest: Chest wall: No tenderness. Neurological: Mental Status: She is alert and oriented to person, place, and time. Psychiatric: Mood and Affect: Mood normal. Behavior: Behavior normal. {ASSESSMENT/PLAN: 1. URI, acute - ICD9: 465.9, ICD10: J06.9 (primary diagnosis) - CEFDINIR 300 MG CAPSULE - METHYLPREDNISOLONE 4 MG TABLETS IN A DOSE PACK 2. Acute otitis media, left - ICD9: 382.9, ICD10: H66.92 Return here as needed - CEFDINIR 300 MG CAPSULE - METHYLPREDNISOLONE 4 MG TABLETS IN A DOSE PACK Angle Clemens MD History and Record Review Clinical information obtained from an independent historian. History obtained from or confirmed by: spouse. Systemic symptoms present included: fever Differential Diagnoses - otitis media is more likely for the following reason(s): suggested by HANDP - pneumonia is less likely for the following reason(s): normal exam o2 sat normal, HANDP not suggestive Disposition The patient was discharged. Procedures [facility] 09-09-2024 History of Present illness Narrative [facility] Cardenas is a 39 year old female. Patient presents with: Earache: Entered by patient Ear Pain: left ear pain, blood and can not hear x 2 days Pt here with 1 week hx of uri sx now left ear pain and clear discharge then some blood muffled hearing also mild fever also a cough with mucus no rashes no sT + post nasal drip Ear Pain Associated symptoms include chills, congestion, coughing and a fever. Review of Systems Constitutional: Positive for chills and fever. HENT: Positive for congestion, ear discharge, ear pain, hearing loss, postnasal drip, sinus pressure and sinus pain. Respiratory: Positive for cough. Negative for shortness of breath, wheezing and stridor. Objective BP 102/64 Pulse 100 Temp 37.4 C (99.3 F) Resp 16 Wt 48.3 kg (106 lb 7.7 oz) LMP 09/26/2009 SpO2 96% Physical Exam Vitals and nursing note reviewed. Constitutional: Appearance: Normal appearance. She is not ill-appearing. HENT: Right Ear: Tympanic membrane and ear canal normal. Ears: Comments: Left tm red canal ok no blood no discharge at this time Nose: Congestion and rhinorrhea present. Mouth/Throat: Mouth: Mucous membranes are moist. Pharynx: Oropharynx is clear. Cardiovascular: Rate and Rhythm: Normal rate and regular rhythm. Heart sounds: Normal heart sounds. Pulmonary: Effort: Pulmonary effort is normal. Breath sounds: Normal breath sounds. No wheezing, rhonchi or rales. Chest: Chest wall: No tenderness. Neurological: Mental Status: She is alert and oriented to person, place, and time. Psychiatric: Mood and Affect: Mood normal. Behavior: Behavior normal. {ASSESSMENT/PLAN: 1. URI, acute - ICD9: 465.9, ICD10: J06.9 (primary diagnosis) - CEFDINIR 300 MG CAPSULE - METHYLPREDNISOLONE 4 MG TABLETS IN A DOSE PACK 2. Acute otitis media, left - ICD9: 382.9, ICD10: H66.92 Return here as needed - CEFDINIR 300 MG CAPSULE - METHYLPREDNISOLONE 4 MG TABLETS IN A DOSE PACK Angle Clemens MD History and Record Review Clinical information obtained from an independent historian. History obtained from or confirmed by: spouse. Systemic symptoms present included: fever Differential Diagnoses - otitis media is more likely for the following reason(s): suggested by H&P - pneumonia is less likely for the following reason(s): normal exam o2 sat normal, H&P not suggestive Disposition The patient was discharged. Procedures documented in this encounter [facility] 09-09-2024 Instructions Angle Clemens MD - 09/09/2024 9:53 AM EDT Otitis Media You have been diagnosed with otitis media. This is a middle ear infection. Otitis media is inflammation of the middle ear. It is most common in children 6 months to 3 years old. However, it can happen at any age. It is caused by either a bacteria or a virus and often follows a viral upper respiratory (lung) infection. Some otitis media symptoms are: Fever (temperature higher than 100.4 F / 38 C) and ear pain. There may also be a feeling of fullness in the ear or decreased hearing. If the eardrum ruptures (splits), there may also be drainage from the ear. In the [facility], otitis media is often treated with antibiotics. It is also often treated with pain medicines like acetaminophen (Tylenol ) or ibuprofen (Advil or Motrin ) and sometimes with pain-relieving eardrops. In many other countries, otitis media is not treated with antibiotics. However, the outcome seems to be the same: The ear clears up on its own! Most cases of otitis media get better over 2-3 days with treatment. Take the antibiotic as directed and finish the whole prescription. Follow up with your doctor in 4-6 weeks. This will be to make sure the fluid in the middle ear has cleared. YOU SHOULD SEEK MEDICAL ATTENTION IMMEDIATELY, EITHER HERE OR AT THE NEAREST EMERGENCY DEPARTMENT, IF ANY OF THE FOLLOWING OCCURS: You do not get better, despite treatment. Symptoms become worse. A severe headache, stiff neck, lethargy (excessive fatigue and sleepiness) or confusion develops. documented in this encounter [facility] 12-02-2021 History of Present illness Narrative CC: Patient presents with: Throat Problem: uvula swollen x days HPI: Faiza Cardenas is a 36 year old female who presents to the office with complaint of sore throat for 6 days. Symptoms are staying the same. Associated symptoms includes feeling like her uvula is swelling at night for the last 2 days. Denies headache, body aches, fever, nausea, vomiting , and diarrhea. Treatments tried include nothing so far. with no relief of symptoms. Sick contacts: unknown. History of asthma, frequent episodes of bronchitis, chronic bronchitis, bronchiectasis or COPD: No Smoker: No Seasonal/environmental allergies: No The ROS is otherwise negative. The patient's pmh, medications, allergies, and past visits are reviewed. PHYSICAL EXAM: BP 118/70 Pulse 116 Temp 37.4 C (99.4 F) Resp 20 Wt 48.1 kg (106 lb) LMP 09/26/2009 SpO2 98% General appearance: alert, cooperative, pleasant, in no acute distress Head: Normocephalic Eyes: EOM's intact, conjunctiva pink and moist, no icterus, sclera white, non-injected Ears: Right ear: External ear/canal- Normal, TM - clear with good landmarks. Left ear: External ear/canal- Normal, TM - clear with good landmarks Oropharynx:mild erythema, without exudates present and no swelling of uvula noted Heart: Negative. RRR without obvious murmur, gallop, or rubs. No ectopy. Lungs: clear to auscultation, without rales or wheeze, good air exchange No past medical history on file. PAST SURGICAL HISTORY Procedure Laterality Date ADENOIDECTOMY PRIMARY <AGE 12 Adenoidectomy MYRINGOTOMY ASPIR&/EUSTACHIAN TUBE NFLTJ ANES Myringotomy/tubes TONSILLECTOMY PRIMARY/SECONDARY <AGE 12 Tonsillectomy ALLERGIES Patient has no known allergies. MEDICATIONS No prescriptions on file. FAMILY HISTORY Problem Relation Age of Onset Cancer Paternal Grandmother lung Social History Tobacco Use Smoking status: Never Smokeless tobacco: Never Vaping Use Vaping Use: Never used Substance Use Topics Alcohol use: No Drug use: No ASSESSMENT/PLAN: 1. Sore throat - ICD9: 462, ICD10: J02.9 - STREP A MOLECULAR (POC) - negative Prednisone daily for 5 days. Added a mono lab test for tomorrow day seven of symptoms. Prescription instructions reviewed with patient as applicable. Potential red flag symptoms discussed with the patient. Reviewed appropriate action plan to take if red flag symptoms occur. Patient agreeable to treatment plan. Patient will follow up if symptoms worsen. Wandy Jain APRN.[employer] documented in this encounter [facility] 06-02-2021 Note [facility] Work Phone: Pap Smear Specimen Adequacy June 02, 2021 10:30am Comment Satisfactory for evaluation. Endocervical and/or squamous metaplasticcells (endocervical component) are present. Comment on above: Satisfactory for jesus alberto luation. Endocervical and/or squamous metaplasticcells (endocervical component) are present. Evaluation note No assessment information availa ble [facility] Work Phone: Evaluation note Diagnosis Sore throat- Primary Acute pharyngitis [facility] Diagnosis URI, acute- Primary Acute upper respiratory infections of unspecified site Acute otitis media, left Unspecified otitis media documented in [facility] Diagnosis Onset Date Resolution Status Admit Date Blood in stool acute November 9:19am Constipation acute November 15, 2024 9:19am [facility] Work Phone: Hospital Discharge instructions Additional Instructions Implant Used?: [facility] Work Phone: Progress note Author Mica Daly [facility] Note Date/Time November 15, 2024 10 :05am [facility] [address] [place] [address] OFFICE VISIT Date of Service: 11/15/24 MR#: [id number] Acct: [id number] Name: FAIZA CARDENAS Rep #: [id number] : 1985 Provider: CADY Chavez Age/Sex: 39/F [place] [facility] Status: Signed Intake Vital Signs 04/05/24 10:36 Height 5 ft 3 in Weight: 105 lb 4 oz BMI 18.6 BP 102/68 Position Sitting Pulse 90 Temp 98.3 F Temp Source Oral Pulse Oximetry (%) 98 Oxygen Delivery Method room air Intake Visit Reasons: Digestion Concerns Chief Complaint: Consitpation Allergies Penicillins Adverse Reaction (Verified 04/05/24 10:37) Unknown Medications ?Medication ?Instructions ?Recorded ?Confirmed ?Type multivitamin 1 cap PO DAILY 01/06/22 10/11/01 History smooth move tea PO 11/15/24 History sodium sul 1.479 gram-potas ch See Rx Instructions PO PER PKG DIR 11/15/24 11/15/24 Rx 0.188 gram-magnes sul 0.225 gram #24 tabs tablet (Sutab) PFSH Medical History UTI (urinary tract infection) Back problem Blood infection Alcohol use Anemia Non-smoker Surgical History H/O uterine ablation History of placement of ear tubes Hx of myringotomy Hx of tonsillectomy Family History Father Alcoholism Hypertension Grandmother Anesthesia complication Breast cancer CVA (cerebral vascular accident) Grandfather Myocardial infarction Heart disease Hypertension Melanoma Social History Smoking Status: Never smoker alcohol intake: current substance use type: does not use what type of physical activity do you participate in: walking and yoga frequency: 3-4 times per week HPI HPI Chief Complaint: Consitpation Details: FAIZA CARDENAS, is a 39 F who presents to the office today for establishment. Pt having constipation x1 year. She started drinking smooth moves tea which has contains senna two times per week. She is able to have a bowel movement two times per week. SHe has tried miralax in the past without relief. She notices dark red blood and mucous in her stool. She has associated bloating and abd pain. When she does have a bowel movement it is typically soft or loose. She denies formed bowel movements. SHe has always had a degree of constipation sincehaving children. ROS Const Constitutional: Positive for fatigue; No fever(s) or weight change ENT ENT: No difficulty swallowing Gastro GI: Positive for abdominal pain, bloating, change in bowel habits, constipation,diarrhea, heartburn and Blood in stool; No belching, change in stool character, coffee ground emesis, cramping, difficulty swallowing, feeling full early, excessive flatus, incontinent of stools, Vomiting blood/hematemesis, loose stools, Black,tarry stools, nausea/dyspepsia, pain with swallowing or other Musc Musculoskeletal: Positive for back pain; No joint pain Skin Skin: No yellowing of the eye or itchy eyes Psych Psychiatric: No anxiety, No depression and Positive for inattentiveness Endo Endocrine: Positive for fatigue; No weight change Aller/Imm Allergy/Immunologic: No itchy eyes Héctor/Lymp Hematologic/Lymphatic: Positive for easy bruising; No easy bleeding Exam Const General: cooperative and comfortable Nutritional Appearance: thin Orientation: alert HENMT Head: normal to inspection Ears: hearing grossly normal bilaterally Eyes General: appearance normal, both eyes and all related structures Neck Neck: normal visual inspection Chest Chest palpation & inspection: normal inspection of the chest Resp Effort & Inspection: normal respiratory effort Cardio Rate: regular rate Rhythm: regular rhythm GI Inspection: normal to inspection Auscultation: normal bowel sounds Palpation: not soft, firm, no guarding and nontender Assessment and Plan Assessment and Plan (1) Constipation: Status: Acute Plan: This is a 39-year-old female patient here today for evaluation for constipation and blood in her stool. Patient first noticed constipation after having her 2 children but it progressively worsened over the past year. She is currently taking a senna tea 2 times per week which allows her to have 2 bowel movements per week. She is also seeing maroon-colored blood and mucus in her stools. Recommended trialing Linzess 145 mcg daily and if she finds this helpful we willsend in prescription. She was advised that she may experience diarrhea within the first 2 weeks of taking it but should normalize. Patient was also scheduledfor colonoscopy for evaluation of her lower GI tract to rule out underlying etiology. Patient was agreeable to proceed. - Colonoscopy - Trial Linzess 145 mcg daily - Follow-up after procedure (2) Blood in stool: Status: Acute Medications: New sod sulf-pot chloride-mag sulf 1.479-0.188- 0.225 gram (Sutab) PO PER PKG DIR 24tabs 0RF Coding Level of Care Code Off vis,new,level 3 Diagnoses Constipation K59.00 Blood in stool K92.1 11/15/24 1005 <Electronically signed by Mica LAZAR> Date _ Mica Malika Paz Signature: Date (if applicable) CC: ~ [facility] [facility] Work Phone: Reason for referral (narrative)No reason for referral information availableBlLos [facility] Work Phone: Advance Directives No Advanced Directives Records Found Advance Directive Response Recorded Date/ Time Living Will No January 18, 2 021 12:08pm Power of Rubber Stamp Dies Inspector No January 18, 2021 12:08pm Advance Directive Response Recorded Date/ Time Living Will Yes January 06, 2 022 12:23pm Power of Rubber Stamp Dies Inspector Yes January 06, 2022 12:23pm Name of Medical Power of Rubber Stamp Dies Inspector SPOUSE January 06, 2022 12:23pm Summary Purpose Family History No Family History Records Found Relationship Condition Age at Onset Recorded Date/[place] father Alcoholism Unknown Hypertension Unknown grandmother Complication of anesthesia Unknown Malignant neoplasm of breast Unknown Cerebrovascular accident (CVA) Unknown grandfather Myocardial infarction Unknown Cardiac disease Unknown Malignant melanoma Unknown Chief Complaint and Reason for Visit Chief Complaint Admit Date Digestion Concerns November 15, 2024 9: 19am Reason for Visit Admit Date Blood in stool November 15, 2024 9: 19am Constipation November 15, 2024 9: 19am Additional Source Comments Goals (unrecognized section and content) Goals may be documented in a n alternate sectionGoals may be documented in an alternate section Source Comments (unrecognize d section and content) In the event this informatio n is protected by the Federal Confidentiality of Alcohol and Drug Abuse Patient Records regulations: The Federal rules restrict any use of the information to criminally investigate or prosecute any alcohol or drug abuse patient.[facility] the event this information is protected by the Federal Confidentiality of Alcohol and Drug Abuse Patient Records regulations: The Federal rules restrict any use of the information to criminally investigate or prosecute any alcohol or drug abuse patient.[facility] Reason for Visit (unrecogniz ed section and content) Reason Comments Throat Problem uvula swollen x days Reason Comments Earache Entered by patient Ear Pain left ear pain, blood and can not hear x 2 days Care Teams (unrecognized sec tion and content) Director Corporate Security Relationship Specialty Start Date End Date Nisha Alvarez MD [address] [place] [address] PCP - General Family Medicine 07/16/19 Director Corporate Security Relationship Specialty Start Date End Date Nisha Alvarez MD [address] [place] [id number] PCP - General Family Medicine 07/16/19 Team Status: Active Member Role/Relationship Status Dates Dr. Nisha Alvarez MD Primary care physician Active Team Status: Inactive Member Role/Relationship Status Dates Dr. Nisha Alvarez MD Primary care physician Active Start: November 15, 2024 End: November 15, 2024 Dr. Nisha Alvarez MD Referring Provider Active St art: November 15, 2024 End: November 15, 2024 CADY Chavez Attending physician Active Start: November 15, 2024 End: November 15, 2024 INFORMATION SOURCE (unrecogn ized section and content) DATE CREATED AUTHOR 09/10/2024 [facility] DATE CREATED AUTHOR 'S ORGANIZ ATION 12/04/2024 [facility] FOR RECORDS PERTAINING TO PATIENTS WHO ARE OR HAVE BEEN ENROLLED IN A CHEMICAL DEPENDENCY/SUBSTANCEABUSE PROGRAM, SOME INFORMATION MAY BE OMITTED. This clinical summary was aggregated from multiple sources. Caution should be exercised in using it in the provision of clinical care. This summary normalizes information from multiple sources, and as a consequence, information in this document may materially change the coding, format and clinical context of patient data. In addition, data may be omitted in some cases. CLINICAL DECISIONS SHOULD BE BASED ON THE PRIMARY CLINICAL RECORDS. [facility] [employer] [facility]. provides no warranty or guarantee of the accuracy or completeness of information in this document.
[2024-12-05 06:48] LABS: Internal QC Validated? YES +Cl - CLEAR BKGD; Pregnancy, Urine Negative Negative; Record Kit Lot#,Urine Preg 0000980607
[2024-12-05] MEDS: Lactated Ringers 1,000 ML 15 ML IV (06:57)
--- NOTE | 2024-12-05 07:01 | PCM.PRE.AN2 ---
ASA Classification* ASA Classification ASA Classification: 2 Assessment & Plan Anesthesia* Anesthesia Assessment Anesthesia Assessment: Discussed sedation and/or anesthesia options, risks, benefits, and alternatives with patient/parents/legal guardian/POA. Questions invited. The patient/parents/legal guardian/POA seems to understand and agrees to proceed with anesthesia plan. Reviewed the physical assessment, medical history, allergy history and patient home medications list prior to surgery/procedure/anesthetic and documented any changes. Performed airway and anesthesia risk assessments. Anesthesia Type Anesthesia Type: MAC Anesthesia Focused Assessment* Temperature: 98.3 F Pulse Rate: 80 Blood Pressure: 90/77 Respiratory Rate: 16 Pulse Ox: 100 Airway Assessment Mouth opens: >3 cm Mallampati Score: II Labs Anesthesia Preop lab: CBC WBC, (4.4-11.0) 8.1 K/mm3 06/02/21, 10:40 RBC, (4.2-5.4) 4.20 M/mm3 06/02/21, 10:40 Hgb, (12.0-15.0) 13.6 g/dL 06/02/21, 10:40 Hct, (37-47) 39.6 % 06/02/21, 10:40 Plt Count, (150-450) 245 K/mm3 06/02/21, 10:40 CHEMISTRY Potassium, (3.5-5.1) 3.6 mmol/L 01/31/16, 11:35 Sodium, (136-145) 134 mmol/L L 01/31/16, 11:35 BUN, (7-18) 9 mg/dL 01/31/16, 11:35 Creatinine, (0.55-1.02) 0.50 mg/dL L 01/31/16, 11:35 Glucose, (70-110) 91 mg/dL 01/31/16, 11:35 TSH, (0.358-3.74) 1.06 uIU/mL 06/02/21, 10:40 COAG Urine Test Negative Negative Today, 06:40 Pre-Assessment Diagnosis/Proposed Procedure Planned Operative Procedure(s): COLONOSCOPY Anesthesia History 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 When Was Last Pacemaker Check QUESTION #4 FULL TEXT: You/Your Family Experience fever (hyperthermia) with Anesthesia Last Oral Intake Last Oral intake: Last Oral Intake NPO since 00:00 12/05/24 06:51 Meds taken in AM with sips of No 12/05/24 06:51 water? 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 Female Yes 12/03/24 12:57 HX of Motion Sickness No 12/03/24 12:57 HX of N/V After Surgery No 12/03/24 12:57 Non-Smoker Yes 12/03/24 12:57 Duration of Surgery greater No 12/03/24 12:57 than 60 minutes Number of Risk Factors 2 12/03/24 12:57 PONV Score Moderate Risk 12/03/24 12:57 Height & Weight Height & Weight: Anesthesia: Height & Weight Height 5 ft 3 in 12/05/24 06:51 Weight: 47 kg 12/05/24 06:51 Body Mass Index (BMI) 18.3 12/05/24 06:51 Respiratory Assessment Respiratory Assessment - pit crane operator: Respiratory Tract Infection Hx - pit crane operator Hx Respiratory Tract Infection No 12/03/24 12:57 STOP Sleep Apnea STOP Sleep Apnea - pit crane operator: STOP Sleep Apnea - pit crane operator Hx Hypertension No 12/03/24 12:57 Hx Sleep Apnea No 12/03/24 12:57 CPAP BIPAP Do you snore loudly (louder No 12/03/24 12:57 than talking or can be heard Do you often feel tired/ No 12/03/24 12:57 fatigued/ sleepy during daytime? Has anyone observed you stop No 12/03/24 12:57 breathing during sleep? STOP Results Negative 12/03/24 12:57 QUESTION #5 FULL TEXT : Do you snore loudly (louder than talking or can be heard through closed doors)? 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 Specify any problems Hx of Preganancy in last 3 No 12/03/24 12:57 Months Nurse Filling Out Transfusion VCHRISTIN 12/03/24 12:57 & Questions: Date: 12/03/24 12/03/24 12:57 Time: 12:58 12/03/24 12:57 Patient unable to answer at this time (ie. confused, unrespo /Reproduction History /Reproductive History - pit crane operator: /Reproductive Hx- pit crane operator Hx Now No 12/03/24 12:57 Gestational Age (in weeks): EDC: Hx Hx Para Hx Section SAB No 12/03/24 12:57 Active Medications Active Medications: Current Medications Generic Name Dose Route Start Last Admin Trade Name Freq PRN Reason Stop Dose Admin Lactated Ringer's 1,000 mls @ 15 mls/hr 12/05/24 06:45 12/05/24 06:57 IV 15 mls/hr .Q48H XOCHITL Administration PFSH Medical History History of steroid therapy History of GI bleed UTI (urinary tract infection) Back problem Blood infection Alcohol use Anemia Non-smoker Home Medications Medication Instructions Recorded Last Taken Type multivitamin 1 cap PO DAILY 01/06/22 01/10/22 History smooth move tea 1 unit PO QODAY 11/15/24 11/28/24 History sodium sul 1.479 gram-potas ch See Rx Instructions PO PER PKG DIR 11/15/24 12/04/24 Rx 0.188 gram-magnes sul 0.225 gram #24 tabs tablet (Sutab) Allergy/AdvReac Type Severity Reaction Status Date / Time Penicillins AdvReac Unknown Verified 12/05/24 06:50 Family History Father Alcoholism Hypertension Grandmother Anesthesia complication Breast cancer CVA (cerebral vascular accident) Grandfather Myocardial infarction Heart disease Hypertension Melanoma Surgical History H/O uterine ablation History of placement of ear tubes Hx of myringotomy Hx of tonsillectomy Social History Smoking Status: Never smoker alcohol intake: current substance use type: does not use what type of physical activity do you participate in: walking and yoga frequency: 3-4 times per week Review of Systems (Anesthesia) ROS Narrative System reviewed and no additional complaints, except as documented.
--- NOTE | 2024-12-05 07:38 | PCM.HP.STD ---
HPI - General General Date of Admission: 12/05/24 Date of Service: 12/05/24 Chief Complaint: Constipation blood in her stool HPI Narrative MAZIN CARDENAS, is a 39 F who presents [Chief Complaint: Consitpation and blood in her stool Pt having constipation x1 year. She started drinking smooth moves tea which has contains senna two times per week. She is able to have a bowel movement two times per week. SHe has tried miralax in the past without relief. She notices dark red blood and mucous in her stool. She has associated bloating and abd pain. When she does have a bowel movement it is typically soft or loose. She denies formed bowel movements. SHe has always had a degree of constipation since having children. [facility] Medical History History of steroid therapy History of GI bleed UTI (urinary tract infection) Back problem Blood infection Alcohol use Anemia Non-smoker Home Medications Medication Instructions Recorded Last Taken Type multivitamin 1 cap PO DAILY 01/06/22 01/10/22 History smooth move tea 1 unit PO QODAY 11/15/24 11/28/24 History sodium sul 1.479 gram-potas ch See Rx Instructions PO PER PKG DIR 11/15/24 12/04/24 Rx 0.188 gram-magnes sul 0.225 gram #24 tabs tablet (Sutab) Allergy/AdvReac Type Severity Reaction Status Date / Time Penicillins AdvReac Unknown Verified 12/05/24 06:50 Family History Father Alcoholism Hypertension Grandmother Anesthesia complication Breast cancer CVA (cerebral vascular accident) Grandfather Myocardial infarction Heart disease Hypertension Melanoma Surgical History H/O uterine ablation History of placement of ear tubes Hx of myringotomy Hx of tonsillectomy Social History Smoking Status: Never smoker alcohol intake: current substance use type: does not use what type of physical activity do you participate in: walking and yoga frequency: 3-4 times per week ROS Constitutional Constitutional: Denies fatigue, fever(s), poor appetite, weight gain or weight loss Gastrointestinal Gastrointestinal: Denies belching, bloating, change in bowel habits, change in stool character, chewing difficulty, coffee ground emesis, constipation, cramping, diarrhea, dyspepsia, dysphagia, early satiety, excessive flatus, fecal incontinence, heartburn, hematemesis, hematochezia, hemorrhoids, loose stools, melena, nausea, odynophagia, rectal bleeding, tenesmus, vomiting or weight changes Vital Signs Vital Signs Vital Signs: 12/05/24 06:51 12/05/24 06:51 12/05/24 07:02 Temperature 98.3 F 98.3 F Temperature Source Temporal Pulse Rate 80 80 Respiratory Rate 16 16 Respiratory Pattern Normal Blood Pressure 90/77 90/77 Blood Pressure Mean 81 Blood Pressure Source Monitor Blood Pressure Position Sitting Blood Pressure Location Right Arm Pulse Ox 100 100 Oxygen Delivery Method Room Air Weight Weight: 103 lb 9.876 oz Body Mass Index (BMI) 18.3 Physical Exam Const alert, oriented x3, no apparent distress and healthy appearing General Appearance: cooperative GI normal to inspection, nondistended, normoactive bowel sounds, soft to palpation, non-tender and non-distended Percussion: normal to percussion Rectal Exam: deferred Results Lab / Micro Data Labs: Laboratory Results - last 24 hr 12/05/24 06:40: Urine Test Negative Assessment & Plan Assessment/Plan (1) Blood in stool: (2) Constipation: PLAN: Assessment and Plan Assessment and Plan (1) Constipation: Status: Acute Plan: This is a 39-year-old female patient here today for evaluation for constipation and blood in her stool. Patient first noticed constipation after having her 2 children but it progressively worsened over the past year. She is currently taking a senna tea 2 times per week which allows her to have 2 bowel movements per week. She is also seeing maroon-colored blood and mucus in her stools. Recommended trialing Linzess 145 mcg daily and if she finds this helpful we will send in prescription. She was advised that she may experience diarrhea within the first 2 weeks of taking it but should normalize. Patient was also scheduled for colonoscopy for evaluation of her lower GI tract to rule out underlying etiology. Patient was agreeable to proceed. - Colonoscopy - Trial Linzess 145 mcg daily - Follow-up after procedure (2) Blood in stool: Status: Acute Medications: New sod sulf-pot chloride-mag sulf 1.479-0.188- 0.225 gram (Sutab) PO PER PKG DIR 24 tabs 0RF ]
--- NOTE | 2024-12-05 08:25 | OP.COLON_ITS ---
Patient Name: Faiza Murray Procedure Date: 12/05/2024 7:45 AM Date of : 1985 Age: 39 Procedure: Colonoscopy Indications: Lower abdominal pain, Change in bowel habits, Change in stool caliber, Constipation, Obstipation Providers: Rodney Moreno DO Referring MD: No Primary Care Physician Medicines: Monitored Anesthesia Care Patient Profile: Last Colonoscopy: none. The patient's first colonoscopy is today. Complications: No immediate complications. Procedure: Pre-Anesthesia Assessment: - Prior to the procedure, a History and Physical was performed, and patient medications and allergies were reviewed. The patient is competent. The risks and benefits of the procedure and the sedation options and risks were discussed with the patient. All questions were answered and informed consent was obtained. Patient identification and proposed procedure were verified by the physician in the pre-procedure area. Mental Status Examination: alert and oriented. Airway Examination: normal oropharyngeal airway and neck mobility. Respiratory Examination: clear to auscultation. CV Examination: normal. ASA Grade Assessment: II - A patient with mild systemic disease. After reviewing the risks and benefits, the patient was deemed in satisfactory condition to undergo the procedure. The anesthesia plan was to use monitored anesthesia care (MAC). Immediately prior to administration of medications, the patient was re-assessed for adequacy to receive sedatives. The heart rate, respiratory rate, oxygen saturations, blood pressure, adequacy of pulmonary ventilation, and response to care were monitored throughout the procedure. The physical status of the patient was re-assessed after the procedure. After I obtained informed consent, the scope was passed under direct vision. Throughout the procedure, the patient's blood pressure, pulse, and oxygen saturations were monitored continuously. The was introduced through the anus and advanced to the terminal ileum. The colonoscopy was performed without difficulty. The patient tolerated the procedure well. The quality of the bowel preparation was adequate. The terminal ileum, ileocecal valve, appendiceal orifice, and rectum were photographed. Scope In: 7:55:45 AM Scope Withdrawal Time 0 hours 10 minutes 44 seconds Scope Out: 8:13:24 AM Total Procedure Duration Time 0 hours 17 minutes 39 seconds Findings: The perianal and digital rectal examinations were normal. The colon (entire examined portion) appeared normal. The terminal ileum appeared normal. A 5 mm anal fissure was found in the anal canal. Impression: - The entire examined colon is normal. - The examined portion of the ileum was normal. - Anal fissure. - No specimens collected. Recommendation: - Discharge patient to home. - Resume previous diet. - Continue present medications. - Repeat colonoscopy in 10 years for screening purposes. Procedure Code(s): --- Professional --- 42247, Colonoscopy, flexible; diagnostic, including collection of specimen(s) by brushing or washing, when performed (separate procedure) CPT copyright 2021 [employer]. All rights reserved. The codes documented in this report are preliminary and upon travograph operator review may be revised to meet current compliance requirements. Rodney Moreno DO 12/05/2024 8:24:27 AM This report has been signed electronically. Number of Addenda: 0 Note Initiated On: 12/05/2024 7:45 AM
--- NOTE | 2024-12-05 08:25 | OP.PROVAT_ITS ---
12/05/2024 No Primary Care Physician Re : Colonoscopy procedure for Faiza Murray Dear Care Physician This procedure was performed on Thursday, December 05, 2024. My impressions and recommendations are as follows: Impressions : - The entire examined colon is normal. - The examined portion of the ileum was normal. - Anal fissure. - No specimens collected. Recommendations : - Discharge patient to home. - Resume previous diet. - Continue present medications. - Repeat colonoscopy in 10 years for screening purposes. My findings are described in the full procedure note, which is enclosed. If I can be of further assistance, please feel free to contact me at . Sincerely, Rodney Moreno, 12/05/2024 8:24:27 AM This report has been signed electronically.
--- NOTE | 2024-12-05 08:30 | PCM.POST.ANE ---
Anesthesia: Postop Eval I Current Vital Signs Temperature: 97.4 F Pulse Rate: 90 Blood Pressure: 103/81 Respiratory Rate: 16 Pulse Ox: 100 Oxygen Delivery Method: Room Air Assessment Airway patent: Yes Spontaneous unlabored respirations: Yes Mental status: Awake and Calm nausea: No Vomiting: No Anesthesia Complication: No Fluid Hydration Crystalloid volume administer (ml): 500 Total IV fluid infused: 500 Progress Note Anesthesia document: Postop Eval 1 completed: Yes
--- NOTE | 2024-12-05 08:44 | PCM.POSTANE2 ---
Anesthesia Postop Eval I Sum Postop Eval Completion status Anesthesia document: Postop Eval 1 completed: Yes Anesthesia Postop Eval I Summary Anesthesia Postop Eval I Summary: Anesthesia Postop Eval I: Assessment Summary Airway patent Yes 12/05/24 08:31 [email or web address] Spontaneous unlabored Yes 12/05/24 08:31 [email or web address] respirations Mental status Awake,Calm 12/05/24 08:31 [email or web address] nausea No 12/05/24 08:31 [email or web address] Vomiting No 12/05/24 08:31 [email or web address] Anesthesia Postop Eval I: Fluid Summary Crystalloid volume administer 500 12/05/24 08:31 [email or web address] (ml) Colloids volume administered ( ml) Blood Product volume administered (ml) Total IV fluid infused 500 12/05/24 08:31 [email or web address] Anesthesia Postop Eval I: Summary Notes Anesthesia Complication No 12/05/24 08:31 [email or web address] Anesthesia Complication Comment: Post-operative progress note Anesthesia: Postop Eval II Evaluation Mental status: Awake Pain Level: 0 nausea: No Vomiting: No
== END 2024-12-05 08:53 | disposition home or self-care (01) ==
LOC: EN 06:34 → AC 06:35
PROVIDERS: Anesthesiology; Visit Provider Internal Medicine Gastroenterology
PROC: 0DJD8ZZ Inspection of Lower Intestinal Tract, Via Natural or Artificial Opening Endoscopic (ICD-10-PCS; CPT 45378; principal; 2024-12-05 07:40)
DX: K92.1 Melena (principal); K60.2 Anal fissure, unspecified; R10.30 Lower abdominal pain, unspecified; K59.00 Constipation, unspecified
CPT/HCPCS: 45378; 81025; J2405